=== PATIENT | male | born 1940 | race Caucasian/White ===

== ENCOUNTER 2024-01-15 07:38 | Day surgery (SDC) | payer MEDICARE ==
[2024-01-08 14:19] VITALS: BP 137/67
[~2024-01-15] VITALS: Ht 172.7 cm; Wt 86.4 kg
[~2024-01-15 07:38] MED LIST: BUPIVACAINE HCL 0.25% 50 ML MDV ONE; CEFAZOLIN SODIUM 2 GM/20 ML SYR IV SCH; DULOXETINE HCL30 MG PO; FINASTERIDE5 MG PO; FLOMAX0.4 MG PO; HEParin SOD (PORCINE) 5,000 UNIT/0.5 ML SYR SUB-Q SCH; IBLOOD GLUCOSE TEST STRIP 1 EA TEST VI PRN; LACTATED RINGER'S 1,000 ML IV SCH; LIDOCAINE 1% W/ EPI 1:200,000 30 ML SDV ONE; LIDOCAINE HCL 1% 5 ML SDV INJ ONE; OMEPRAZOLE20 MG PO; SODIUM CHLORIDE 0.9% 60 ML IV ONE; TYLENOL325 MG PO; VENTOLIN HFA18 GM; iopamidoL 30 ML VIAL ONE
[2024-01-15 08:01] VITALS: BP 142/71
[2024-01-15] MEDS ORDERED: propofoL 200 MG/20 ML VIAL ONE (08:56)
[2024-01-15] MEDS ORDERED: ROCURONIUM BROMIDE 50 MG/5 ML SYR ONE (08:56)
[2024-01-15] MEDS ORDERED: LIDOCAINE HCL 2% 5 ML SDV ONE (08:56)
[2024-01-15] MEDS ORDERED: LIDOCAINE HCL 1% 30 ML SDV ONE (08:56)
--- NOTE | 2024-01-15 09:09 | NUR ---
0909 PT USED CALL LIGHT TO INFORM THAT ANTIBIOTIC INFUSION IS COMPLETE. INFUSION DISCONTINUED, LR RUNNING. 0910 PT HAS CALL LIGHT WITHIN REACH, AT BEDSIDE AND PERSONAL ITEMS WITHIN REACH
[2024-01-15] MEDS ORDERED: KETAMINE in NS 50 MG/5 ML SYR ONE (09:32)
[2024-01-15] MEDS ORDERED: ACETAMINOPHEN 1,000 MG/100 ML VIAL ONE (09:32)
[2024-01-15] MEDS ORDERED: DEXAMETHASONE SOD PHOS 4 MG/ML VIAL ONE (09:33)
[2024-01-15] MEDS ORDERED: ondansetron HCL 4 MG/2 ML VIAL ONE (09:33)
[2024-01-15] MEDS ORDERED: SUGAMMADEX SODIUM 200 MG/2 ML ML ONE (09:35)
[2024-01-15] MEDS ORDERED: IBLOOD GLUCOSE TEST STRIP 1 EA TEST VI PRN (09:45)
[2024-01-15] MEDS ORDERED: diphenhydrAMINE HCL 50 MG/ML VIAL IV PRN (09:45)
[2024-01-15] MEDS ORDERED: NALOXONE HCL 0.4 MG SYR IV PRN (09:45)
[2024-01-15] MEDS ORDERED: ondansetron HCL 4 MG/2 ML VIAL IV PRN ×2 (09:45→11:45)
[2024-01-15] MEDS ORDERED: fentaNYL citrate 100 MCG/2 ML VIAL IV PRN (09:45)
[2024-01-15] MEDS ORDERED: SODIUM CHLORIDE 0.9% 20 ML IV ONE (10:19)
[2024-01-15] MEDS ORDERED: ePHEDrine sulfate 50 MG/ML AMP ONE (10:19)
[2024-01-15] MEDS ORDERED: ESMOLOL HCL 100 MG/10 ML VIAL IV ONE (10:33)
[2024-01-15] MEDS ORDERED: fentaNYL citrate 100 MCG/2 ML VIAL ONE (10:38)
[2024-01-15] MEDS ORDERED: LACTATED RINGER'S 1,000 ML IV ONE (10:45)
[2024-01-15] MEDS ORDERED: HYDROCODONE/ACETA 5/325 TAB PO PRN (11:45)
[2024-01-15] MEDS ORDERED: HYDROmorphone HCL 1 MG/ML SYR IV PRN (11:45)
[2024-01-15] MEDS ORDERED: PROCHLORPERAZINE EDISYLATE 10 MG/2 ML VIAL IV PRN (11:45)
--- NOTE | 2024-01-15 12:02 | NUR ---
01/15/24 1202 Brenda Sheikh PT TO PACU SLEEPING ORAL AIRWAY IN PLACE O2 VIA MASK FOGGING NOTED IN MASK.
[2024-01-15 12:44] VITALS: BP 146/70
--- NOTE | 2024-01-15 13:08 | NUR ---
1245 PT ARRIVED FROM PACU TO DAY SURGERY VIA STRECHER. REPORT TAKEN FROM ELLE LR PT AT 6/10 NOT TOLERABLE PAIN. VITALS TAKEN. PT AT BEDSIDE. PT BREATHING EQUAL AND UNLABORED. PT REPORTS NO NAUSEA. PT GIVEN CRACKERS AND JELLO. 1250 PT ABLE TO TOLERATE PO WATER AND CRACKERS AND JELLO. 1254 PT GIVEN ONE NARCO FOR PAIN. 1305 PT REPORTS NO NAUSEA. PT REPORTS 4/10 PAIN. 1306 PT HAS CALL LIGHT WITHIN REACH, PT HAS PERSONAL ITEMS WITHIN REACH. PT AT BEDSIDE. PT AND FAMILY HAVE NO FURTHER QUESTIONS AT THIS TIME.
[2024-01-15 13:32] VITALS: BP 143/72
--- NOTE | 2024-01-15 13:39 | NUR ---
1340 PT HOURLY VITALS TAKEN. PT AT 4/10 TOLERABLE PAIN. PT REPORTS NO NAUSEA. PT HAS AT BEDSIDE. PT HAS PERSONAL ITEMS WITHIN REACH, PT HAS CALL LIGHT WITHIN REACH, PT AND FAMILY HAVE NO FURTHER QUESTIONS AT THIS TIME.
--- NOTE | 2024-01-15 14:19 | OR ---
[facility] [address], [place] [address] Signed DATE OF OPERATION: 01/15/2024 SURGEON: Yovanny Mejia MD PREOPERATIVE DIAGNOSES: 1. Chronic cholecystitis, cholelithiasis. 2. Biliary dyskinesia with ejection fraction of 4%-7%. POSTOPERATIVE DIAGNOSES: 1. Chronic cholecystitis, cholelithiasis, and cholesterolosis. 2. Biliary dyskinesia with ejection fraction of 4%-7%. PROCEDURE: Laparoscopic cholecystectomy with intraoperative cholangiogram. ESTIMATED BLOOD LOSS: None. FINDINGS: The intraoperative cholangiogram was unremarkable. There were no filling defects in the cystic duct or common bile duct. The contrast flowed nicely into the duodenum. He did have two 4 mm stones in the gallbladder and multiple small 1 to 2 mm cholesterol stones as well with significant cholesterolosis. INDICATIONS: Kirt is an 83-year-old gentleman, who remains quite healthy with good functional status. In fact, he gets up on the roof with his to get the leaves and the sticks off his roof of his house. He said he has many family members who have lived into their 90s. His accompanies him. In the last two or maybe three years, he has had trouble with abdominal pain 20 to 30 minutes after he eats. It seemed to be worse after fatty meals. However, it is interesting it seems to be below the umbilicus. He seems to be resistant to healthcare in general. Amazingly, he only takes a couple of medications. He has declined cystoscopy in the past related to his BPH. He has declined colonoscopies and barium enemas all these years. He finally went and had a CT scan of abdomen and pelvis in May 2023. It describes probably three gallstones less than 4 mm in size. They seem to be in the dependent portion of his gallbladder. He also has moderate to severe diverticulosis. However, he declines lower GI symptoms related to bowel movements. He does not particularly have constipation. HIDA scan in November of 2023 showed the gallbladder ejection fraction low at 4%-7%. He could not recall if the HIDA scan reproduced his symptoms. He finally was referred to my office Electronically Signed By: YOVANNY MEJIA MD 01/15/24 1419 PATIENT NAME: KIRT LEWIS OPERATIVE REPORT DATE OF : 36 REPORT #: [id number] PHYSICIAN: YOVANNY MEJIA MD PCP: SOM TODD MD REPORT IS CONFIDENTIAL AND NOT TO BE RELEASED WITHOUT AUTHORIZATION [facility] [address], [place] [address] Signed with respect to the above. He said he does use some MiraLAX once in a while for his chronic constipation, he said that is not new. He had used it about once a week. He said these symptoms are different. In the office, I gave him our brochure on the gallbladder. We have discussed the location and function of the gallbladder. We have discussed laparoscopic versus open cholecystectomy. We did review the expected intraop and postop course. There is risk including, but not limited to bleeding, infection, scarring, change in contour of the skin, damage to bowel, damage to main bile duct, incisional hernias and other unforeseen comorbidities including the inability to relieve his pain. Even then he was a bit reticent, he finally decided he better go ahead and have his gallbladder out given his nearly three years of symptoms. He and his had expressed understanding and wished to proceed. DESCRIPTION OF PROCEDURE: I had met with Kirt this morning. His had gone out for a walk. He said he was still having symptoms. After this, he was taken into the operating room and placed in a supine position under general endotracheal tube anesthesia. He was given preoperative antibiotics along with subcutaneous heparin. SCDs were utilized. He was prepped and draped in usual sterile fashion. All trocars were placed in their usual positions under direct visualization of the camera without difficulty. His liver appeared healthy. The gallbladder was grasped and elevated in the right upper quadrant, although we could not elevate as far as we liked. There was quite a bit air in his transverse colon. We went ahead and introduced our fan retractor through the midline and brought in another nurse. We were able to push the transverse colon down along the mesocolon and therefore access the bottom of his gallbladder. We dissected out the triangle of Calot very carefully and easily identified the cystic artery and cystic duct. We opened the gallbladder as it was coming down to the cystic duct. The intraoperative cholangiogram was inserted very carefully. Contrast flowed quite nicely and the x-ray showed no filling defects along cystic duct or the common bile duct. The contrast flowed nicely to the wall of the duodenum. After this, the cystic duct stump was secured with a PDS Endoloop and two clips were placed across the cystic duct stump to romero its location. The gallbladder was then very slowly and carefully removed from the gallbladder fossa with the help of the cautery. The gallbladder was then placed into an EndoCatch bag. We used our laparoscopic suturing device to pass 0-Vicryl suture on either side of the fascia of the subxiphoid and the midepigastric trocar sites. These were tied down to close these primarily. After this, all the gas was allowed to escape and all the trocars were removed along with the gallbladder. The gallbladder was opened on the back table by our circulating nurse for photodocumentation. Again, he had cholesterolosis and at least I think three small black cholesterol stones, may be 3 or 4 mm in diameter. He also had multiple small 1 and 2 mm yellow cholesterol stones. After this, we closed the supraumbilical trocar site with interrupted [id number] and 0-Vicryl sutures. Local anesthetic was injected into all trocar sites. The skin and dermis of each trocar site was then closed with interrupted 3-0 subcuticular and Monocryl sutures. Dry gauze and Electronically Signed By: YOVANNY MEJIA MD 01/15/24 1419 PATIENT NAME: KIRT LEWIS OPERATIVE REPORT DATE OF : 36 REPORT #: [id number] PHYSICIAN: YOVANNY MEJIA MD PCP: SOM TODD MD REPORT IS CONFIDENTIAL AND NOT TO BE RELEASED WITHOUT AUTHORIZATION [address] [address] Signed tape was applied to all incisions. Kirt was awakened from his anesthesia, extubated in the OR, and taken to the recovery room in stable condition. Yovanny Mejia MD ALB/MODL /[id number] cc: MD Som Cruz MD Copies: YOVANNY MEJIA MD, RUSSELL BARR MD ~ Electronically Signed By: YOVANNY MEJIA MD 01/15/24 1419 PATIENT NAME: KIRT LEWIS OPERATIVE REPORT DATE OF : 36 REPORT #: [id number] PHYSICIAN: YOVANNY MEJIA MD PCP: SOM TODD MD REPORT IS CONFIDENTIAL AND NOT TO BE RELEASED WITHOUT AUTHORIZATION
[2024-01-15 14:43] VITALS: BP 141/80
--- NOTE | 2024-01-15 15:00 | NUR ---
1440 PT ABLE TO AMBULATE TO BATHROOM AND VOID 75 MLS. PT REPORTS THAT HE DID NOT TAKE FLOMAX THIS MORNING, AND WHEN HE DOESNT TAKE HIS FLOMAX HE USUALLY CANT VOID VERY MUCH. PT REQUESTING TO GO HOME. INFORMED PT THAT IF HE CANNOT URINATE OR HAS PAIN ATTEMPTING TO URINATE TO GO TO ER. PT AND UNDERSTOOD. 1445 VITALS TAKEN. PT REPORTS NO NAUSEA. PT ABLE TO TOLERATE PO WATER AND SNACKS. PT HAS 2/10 TOLERABLE PAIN. PRESCRIPTION SENT WITH PT AND . DISCHARGE INFORMATION GONE OVER WITH PT AND AT BEDSIDE. PT AND FAMILY HAVE NO FUTHER QUESTIONS AT THIS TIME. 1455 IV DISCONTINUED. PT DISCHARGED FROM DAY SURGERY VIA WHEELCHAIR TO 'S CAR AT THE FRONT OF HOSPITAL.
--- NOTE | 2024-01-15 16:19 | NUR ---
1610 RECEIVED NOTE FROM BALANCING MACHINE SET UP WORKER THAT [facility] CALLED ABOUT PRESCRIPTION. THERE WAS NO DOSAGE ON PRESCRIPTION. CALLED [facility] BACK AND SPOKE WITH THEM, THEY SAID PT HAD LEFT WITHOUT BEING ABLE TO FILL THE PRESCRIPTION. PHARMACY WAS GIVEN DR MEJIA'S PHONE NUMBER TO CALL ABOUT DOSAGE IF PT RETURNED. 1615 CALLED PT REGARDING PHARMACY. SPOKE WITH PT AND REGARDING SITUATION. PT HAD JUST RETURNED HOME TO [place] FOR THE NIGHT. INFORMED PT AND SPOUSE THEY CAN RETURN TO PHARMACY TO FILL PRESCRIPTION NOW THAT PHARMACY HAS 'S PHONE NUMBER. PT SAID HIS PAIN WAS 1/10 AND HE WAS GOING TO JUST USE TYLENOL FOR THE NIGHT. PT INFORMED ME THAT DOES NOT DRIVE THE GREATEST AND WANTED TO WAIT UNTIL MORNING TO DRIVE BACK. PT SPOUSE STATED IF PT PAIN GOT WORSE SHE WOULD SEE IF SHE COULD FIND A FRIEND TO DRIVE HER TO FILL PRESCRIPTION.
== END 2024-01-15 14:55 | disposition home or self-care (01) ==
LOC: DS 07:38
PROVIDERS: ATTEND Colon & Rectal Surgery
PROC: 0FT44ZZ Resection of Gallbladder, Percutaneous Endoscopic Approach (ICD-10-PCS; principal; 2024-01-15 09:00)
DX: K80.10 Calculus of gallbladder with chronic cholecystitis without obstruction (principal); K82.8 Other specified diseases of gallbladder; M19.90 Unspecified osteoarthritis, unspecified site; N40.0 Benign prostatic hyperplasia without lower urinary tract symptoms; K21.9 Gastro-esophageal reflux disease without esophagitis; E78.5 Hyperlipidemia, unspecified
CPT/HCPCS: 00790; J0131; J0690; J1100; J1170; J1644; J2001; J2405; J2704; J3010; J3490; J7121